=== PATIENT | male | born 1945 | race Caucasian/White ===

== ENCOUNTER 2017-12-18 19:58 | Inpatient (IN) | payer MEDICARE ==
[~2017-12-18] VITALS: Ht 175.3 cm; Wt 68.0 kg
[~2017-12-18 19:58] MED LIST: FINA5TAB4 PO; LISI-658 PO
[2017-12-18 21:04] LABS: BASOPHILS # (AUTO) 0.1 /CMM (0.0-0.2); BASOPHILS % (AUTO) 1.1 % (0.0-2.0); EOSINOPHILS # (AUTO) 0.1 /CMM (0.0-0.7); EOSINOPHILS % (AUTO) 1.9 % (0.0-6.0); HEMATOCRIT 44 % (39-51); HEMOGLOBIN 14.9 g/dL (13.5-17.5); LYMPHOCYTES # (AUTO) 1.9 /CMM (0.8-4.8); LYMPHOCYTES % (AUTO) 31.5 % (20.0-44.0); MEAN CORPUSCULAR HEMOGLOBIN 30 PG (26.0-33.0); MEAN CORPUSCULAR HGB CONC 34 g/dl (31.0-36.0); MEAN CORPUSCULAR VOLUME 89 fL (80-96); MONOCYTES # (AUTO) 0.4 /CMM (0.1-1.30); MONOCYTES % (AUTO) 7.2 % (2.0-12.0); NEUTROPHILS # (AUTO) 3.7 /CMM (1.8-8.9); NEUTROPHILS % (AUTO) 58.3 % (43.0-81.0); PLATELET COUNT (AUTO) 276 /CMM (150-450); RDW COEFFICIENT OF VARIATION 12.9 (11.5-15.0); RED BLOOD CELL COUNT(AUTO) 4.91 MIL/uL (4.5-6.0); WHITE BLOOD COUNT (AUTO) 6.2 K/uL (4.3-11.0)
[2017-12-18 21:22] LABS: INR 0.94 (0.85-1.15)
[2017-12-18 21:33] LABS: CALCIUM, SERUM 9.4 mg/dL (8.5-10.1); CARBON DIOXIDE 24 mmol/L (21-32); CHLORIDE 105 mmol/L (98-107); CREATININE 0.7 mg/dL (0.6-1.3); GLUCOSE 104 mg/dL (74-106); POTASSIUM 4.3 mmol/L (3.5-5.1); SODIUM SERUM 140 mmol/L (136-145); UREA NITROGEN, BLOOD 15 mg/dL (7-18)
[2017-12-18 21:39] LABS: ALANINE AMINOTRANSFERASE 23 U/L (12-78); ALBUMIN 3.5 g/dL (3.4-5.0); ALCOHOL, BLOOD < 3 mg/dL (0-0); ALKALINE PHOSPHATASE 92 U/L (46-116); ASPARTATE AMINOTRANSFERASE 22 U/L (15-37); BILIRUBIN,DIRECT 0.2 mg/dL (0.0-0.2); BILIRUBIN,TOTAL 0.5 mg/dL (0.2-1.0); TOTAL PROTEIN, SERUM 7.2 g/dL (6.4-8.2)
[2017-12-18 21:40] LABS: SALICYLATE 1.7 mg/dL (2.8-20.0)
[2017-12-18 21:41] LABS: ACETAMINOPHEN < 2 ug/ml (10-30)
[2017-12-18] MEDS ORDERED: TRAZODONE 50 MG TABLET PO ONE (22:00)
[2017-12-18] MEDS ORDERED: LORAZEPAM INJ 2 MG/ML VIAL IM ONE (22:00)
[2017-12-18] MEDS ORDERED: QUETIAPINE FUMARATE 100 MG TABLET PO SCH (22:00)
--- NOTE | 2017-12-18 22:06 | NUR ---
[id number]
[2017-12-18] MEDS ORDERED: TRAZODONE 50 MG TABLET ONE (22:11)
[2017-12-18] MEDS ORDERED: LORAZEPAM INJ 2 MG/ML VIAL ONE (22:11)
[2017-12-18] MEDS ORDERED: QUETIAPINE FUMARATE 25 MG TABLET ONE (22:11)
[2017-12-18] MEDS ORDERED: LITH300T3 PO (22:34)
[2017-12-18] MEDS ORDERED: TRAZ-144 PO (22:34)
[2017-12-18] MEDS ORDERED: QUET100T PO (22:34)
[2017-12-18] MEDS ORDERED: LITH600C PO (22:34)
[2017-12-18] MEDS ORDERED: ACETAMINOPHEN 325 MG TABLET PO PRN (23:00)
[2017-12-18] MEDS ORDERED: MAG HYDROX/AL HYDROX/SIMETH 30 ML UDC PO PRN (23:00)
[2017-12-18] MEDS ORDERED: TEMAZEPAM 7.5 MG CAPSULE PO PRN (23:00)
[2017-12-18] MEDS ORDERED: MAGNESIUM HYDROXIDE 30 ML UDC PO PRN (23:00)
[2017-12-18] MEDS ORDERED: LORAZEPAM 0.5 MG TABLET PO PRN (23:00)
--- NOTE | 2017-12-18 23:32 | NUR ---
ADMISSION NOTES ADMITTED THIS 72 Y/O MALE PATIENT ADMIT FROM [facility] ER/ , PT. INTIALLY CAME FROM [facility]. PT IS ON 5150 HOLD FOR GD,DANGER TO OTHERS , PER HOLD PT. IS CONFUSED, DISORGNIZE , DISORIENTED ,RESPONDING TO INTERNAL STIMULI TALKING TO SELF,EXHIBITING BIZARE BEHAVIOR, ANXIOUS ,UPON FACE TO FACE ASSESSMENT PATIENT IS A&O X1,2 CONFUSED DISORIENTED , DISORGNIZED ANXIOUS , AGGRESSIVE BEHAVIOR , DISHELVED ,UNCOOPERTIVE BEHAVIOR, FLIGHT OF WORDS, POOR HYGIENE , PT. REFUSED TO TAKE SHOWER AT THIS TIME , PT. IS POOR HISTORIAN, POOR INSIGHT ,POOR JUDGEMENT ,V/S WNL, NO ACUTE DISTRESS NOTED, HX OF , BIPOLAR, DEPRESSION , ANXIETY,HTN ,ARTHRITIS, BPH, PT. ALLOWED ONLY SUPERFICIAL SKIN ASSESSMENT, PER PT. MY SKIN IS CLERA , PICTURE TAKEN PLACED IN THE CHART, MD AWARE OF NEW ADMISSION,, ENCOURAGED PT. VERBALIZED ANY FEELING CONCERN TO STAFF, ORIENT TO UNIT POLICY, WILL CONTINUE TO MONITOR FOR Q15 SAFETY AND BEHAVIOR.
[2017-12-18 23:50] VITALS: BP 114/70
[2017-12-19] MEDS: ENOXAPARIN SODIUM 40 MG/0.4 ML DISP.SYRIN SQ SCH ×2 (01:00→23:00)
--- NOTE | 2017-12-19 03:01 | NUR ---
RN GPS NOTES PT. REFUSED TO TAKE PICTURE RIGHT LOWER EXTRMITES , ENCOURAGED X 3 EXPLIAN RISKS AND BENEFITS , STILL REFUSED, PT. STATUS I DON'T WANT TAKE PICTURE
[2017-12-19 07:38] LABS: APPEARANCE,URINE CLEAR (CLEAR); BILIRUBIN,URINE NEGATIVE (NEGATIVE); BLOOD, URINE NEGATIVE Ery/uL (NEGATIVE); COLOR,URINE YELLOW (YELLOW); KETONES,URINE NEGATIVE (NEGATIVE); LEUKOCYTE ESTERASE ,URINE NEGATIVE (NEGATIVE); NITRITE, URINE NEGATIVE (NEGATIVE); PH,URINE 6.5 (5.0-8.0); PROTEIN,URINE NEGATIVE (NEGATIVE); UGLUCOSE NEGATIVE (NEGATIVE); UROBILINOGEN,URINE 0.2 EU/dL (0.2)
[2017-12-19 08:00] VITALS: BP 133/83
[2017-12-19] MEDS: FINASTERIDE (5 MG) 5 MG TABLET PO SCH (09:02)
[2017-12-19] MEDS: LISINOPRIL (20MG) 20 MG TABLET PO SCH (09:03)
--- NOTE | 2017-12-19 13:45 | NUR ---
WOUND CARE CONSULT: PT VERY AGITATED AND REFUSING SKIN ASSESSMENT. PT IS AMBULATORY AND CONTINENT. CURRENT LUDIN SCORE IS 19. WILL SEE PRN.
--- NOTE | 2017-12-19 15:27 | NUR ---
RN-CO: PATIENT WAS SEEN AND EXAMINED BY FRANCINE LOVE NP. MICROGRAPHICS SERVICES SUPERVISOR MADE AWARE THAT PATIENT HAS HX OF DM PER PT.
--- NOTE | 2017-12-19 15:29 | NUR ---
RN-CO: PATIENT IS SCREAMING AND YELLING FOR NO REASON, VERBALLY ABUSIVE TO STAFF. AGITATED, ATIVAN 0.5 MG PO GIVEN. SEEN BY DR BATISTA.
[2017-12-19] MEDS: LITHIUM CARBONATE 150 MG CAPSULE PO SCH (16:25)
[2017-12-19] MEDS: QUETIAPINE FUMARATE 25 MG TABLET PO SCH (16:25)
[2017-12-19 16:58] VITALS: BP 138/79
--- NOTE | 2017-12-19 17:21 | NUR ---
RN-CO: STILL WAITING FOR HEMOGLOBIN A1C RESULT.
--- NOTE | 2017-12-19 19:20 | NUR ---
GPS/DINING SERVER; RECEIVED PT IN BED QUIET AND APPEARED SLEEPING WITH EYES CLOSED. BREATHING NON LABORED. BED ON LOWER POSITION AND LOCKED FOR SAFETY. SIDE UPPER PART OF BED X2 ARE UP FOR SAFETY. WILL CONTINUE TO MONITOR.
[2017-12-19 20:50] VITALS: BP 100/53
[2017-12-19] MEDS: TRAZODONE 50 MG TABLET PO SCH (22:40)
[2017-12-19] MEDS: QUETIAPINE FUMARATE 100 MG TABLET PO SCH (22:40)
--- NOTE | 2017-12-19 23:00 | NUR ---
GPS /ASSISTANT FINANCE MANAGER; PT REFUSED LOVENOX AND CHARGE NURSE MADE AWARE.
--- NOTE | 2017-12-19 23:30 | NUR ---
GPS/STEELSCOPE OPERATOR; MACARIO HELMS ACCOUNTING CONSULTANT WAS NOTIFIED PT REFUSED LOVENOX AND SHE SAID THAT'S OK.
--- NOTE | 2017-12-20 06:29 | NUR ---
GPS/INORGANIC CHEMICAL TECHNICIAN; SLEPT FOR 10 HOURS. CONTINENT; WENT FOR BRP. WILL ENDORSE TO THE DAY SHIFT NURSE.
--- NOTE | 2017-12-20 07:00 | NUR ---
GPS/ENERGY BROKER; NOTED PT UP STANDING WITH DIAPER ON AND NOTED PT MADE A BM AND BM ON THE FLOOR AND YOUTH DEVELOPMENT SPECIALIST ANIVAL GIVING HIM A SHOWER.
[2017-12-20 07:47] LABS: CREATININE 0.9 mg/dL (0.6-1.3)
[2017-12-20 07:48] LABS: CHOLESTEROL 110 mg/dL (<200); HDL CHOLESTEROL 54 mg/dL (40-60); LDL 49 mg/dL (0-99); TRIGLYCERIDES 72 mg/dL (30-150)
[2017-12-20 08:00] VITALS: BP 101/69
[2017-12-20] MEDS: LISINOPRIL (20MG) 20 MG TABLET PO SCH (09:00)
[2017-12-20] MEDS: LITHIUM CARBONATE 150 MG CAPSULE PO SCH ×3 (09:50→17:09)
[2017-12-20] MEDS: QUETIAPINE FUMARATE 25 MG TABLET PO SCH ×2 (09:50→17:09)
[2017-12-20] MEDS: FINASTERIDE (5 MG) 5 MG TABLET PO SCH (09:50)
--- NOTE | 2017-12-20 11:45 | NUR ---
GPS/RN-NOTES PATIENT IN HIS BED RINGING HIS CORNEJO . NATIONAL SALES REPRESENTATIVE WENT IN HIS ROOM AND ASK WHAT HE NEED BUT PATIENT START YELLING AND VERBALLY ABUSIVE USING FOUL LANGUAGES. DEMANDING AND WANTED TO BE DISCHARGE. REDIRECTED AND OFFERED ATIVAN BUT PATIENT REFUSED. STATED" I DON'T NEED ATIVAN". I WILL TALK ONLY TO THE DOCTOR.
[2017-12-20 15:53] VITALS: BP 128/83
--- NOTE | 2017-12-20 16:37 | NUR ---
Initial Discharge Plan: Pt resides at [facility], [address] [address]; . Upon discharge pt would like to return to the facility. MARÍA contacted pts brother, Escobar Nolen for collateral information however was unable to speak to him. SW left a message. MARÍA will follow up to ensure pt is safely and properly discharged.
[2017-12-20] MEDS: ENOXAPARIN SODIUM 40 MG/0.4 ML DISP.SYRIN SQ SCH (20:46)
[2017-12-20] MEDS: TRAZODONE 50 MG TABLET PO SCH (21:09)
[2017-12-20] MEDS: QUETIAPINE FUMARATE 100 MG TABLET PO SCH (21:10)
[2017-12-21 08:00] VITALS: BP 129/77
[2017-12-21] MEDS: LITHIUM CARBONATE 150 MG CAPSULE PO SCH ×3 (08:15→18:04)
[2017-12-21] MEDS: LISINOPRIL (20MG) 20 MG TABLET PO SCH (08:15)
[2017-12-21] MEDS: FINASTERIDE (5 MG) 5 MG TABLET PO SCH (08:15)
[2017-12-21] MEDS: QUETIAPINE FUMARATE 25 MG TABLET PO SCH ×2 (08:15→18:06)
[2017-12-21] MEDS: LORAZEPAM 0.5 MG TABLET PO PRN (08:15)
--- NOTE | 2017-12-21 09:23 | NUR ---
GPS/RN DISREGARD ACCUCHECK WITH BS =[id number]. USER ERROR. Addendum: 12/21/17 at 1452 by DORIS MARTINO RN ATTENDING [facility] HOSPITAL[facility] PATRICIA CONRAD MADE AWARE ACCUCHECK USER ERROR AT [id number]
[2017-12-21] MEDS ORDERED: BLOOD SUGAR DIAGNOSTIC 1 EACH STRIP IN ONE (13:30)
[2017-12-21 16:00] VITALS: BP 107/56
[2017-12-21] MEDS: QUETIAPINE FUMARATE 100 MG TABLET PO SCH (18:04)
[2017-12-21 20:00] VITALS: BP 100/54
[2017-12-21] MEDS: ENOXAPARIN SODIUM 40 MG/0.4 ML DISP.SYRIN SQ SCH (21:21)
[2017-12-21] MEDS: TRAZODONE 50 MG TABLET PO SCH (21:40)
[2017-12-22 08:00] VITALS: BP 115/65
[2017-12-22] MEDS: LISINOPRIL (20MG) 20 MG TABLET PO SCH (08:26)
[2017-12-22] MEDS: FINASTERIDE (5 MG) 5 MG TABLET PO SCH (08:27)
[2017-12-22] MEDS: LITHIUM CARBONATE 150 MG CAPSULE PO SCH ×3 (08:27→17:32)
[2017-12-22] MEDS: QUETIAPINE FUMARATE 25 MG TABLET PO SCH ×3 (08:27→22:12)
[2017-12-22] MEDS: LORAZEPAM 0.5 MG TABLET PO PRN (08:31)
--- NOTE | 2017-12-22 08:35 | NUR ---
GPS RN NOTES PATIENT INSIDE ROOM, RESTLESS WITH INCREASING AGITATION, BEING VERBALLY ABUSIVE. OFFERED ATIVAN AND SAID YES, GAVE ATIVAN ORDERED PRN. WILL CONTINUE TO MONITOR
[2017-12-22 16:00] VITALS: BP 121/76
[2017-12-22 20:00] VITALS: BP 111/55
[2017-12-22] MEDS: ENOXAPARIN SODIUM 40 MG/0.4 ML DISP.SYRIN SQ SCH (21:00)
[2017-12-22] MEDS: TRAZODONE 50 MG TABLET PO SCH ×2 (22:12→22:13)
[2017-12-22] MEDS: QUETIAPINE FUMARATE 100 MG TABLET PO SCH (22:13)
--- NOTE | 2017-12-23 01:08 | NUR ---
Pt has been disheveled, malodorous, easily irritable, & refusing to take a shower but med compliant w/o any promptings.
[2017-12-23 08:00] VITALS: BP 106/72
[2017-12-23] MEDS: LITHIUM CARBONATE 150 MG CAPSULE PO SCH ×3 (08:59→16:28)
[2017-12-23] MEDS: FINASTERIDE (5 MG) 5 MG TABLET PO SCH (09:01)
[2017-12-23] MEDS: LISINOPRIL (20MG) 20 MG TABLET PO SCH (09:01)
--- NOTE | 2017-12-23 10:00 | NUR ---
NURSING NOTE PT C/O RIGHT LEG PAIN AND BILATERAL SHOULDER PAIN, RATING PAIN 10/10, PER PT REQUEST TYLENOL 650 MG WAS GIVEN, VS WNL, WILL CONTINUE TO MONITOR
--- NOTE | 2017-12-23 11:00 | NUR ---
NURSING NOTE REASSESSED PT'S PAIN LEVEL, PT STATES HIS PAIN IS 6/10, VS WNL, WILL CONTINUE TO MONITOR
[2017-12-23 16:00] VITALS: BP 103/67
[2017-12-23] MEDS: QUETIAPINE FUMARATE 25 MG TABLET PO SCH (16:29)
[2017-12-23 19:46] VITALS: BP 85/51
[2017-12-23] MEDS: QUETIAPINE FUMARATE 100 MG TABLET PO SCH (21:24)
[2017-12-23] MEDS: ENOXAPARIN SODIUM 40 MG/0.4 ML DISP.SYRIN SQ SCH (21:25)
[2017-12-24 08:00] VITALS: BP 124/76
[2017-12-24] MEDS: QUETIAPINE FUMARATE 25 MG TABLET PO SCH ×2 (09:52→16:49)
[2017-12-24] MEDS: LITHIUM CARBONATE 150 MG CAPSULE PO SCH ×3 (09:52→16:49)
[2017-12-24] MEDS: FINASTERIDE (5 MG) 5 MG TABLET PO SCH (09:52)
[2017-12-24] MEDS: LISINOPRIL (20MG) 20 MG TABLET PO SCH (09:52)
--- NOTE | 2017-12-24 10:17 | NUR ---
Discharge Planning: MARÍA contacted [facility], [address] [address]; to obtain contact information for pts conservator. MARÍA was provided with the following contact information: Adam Spencer . MARÍA called the number provided and was informed that pts Conservator is Caio Malcolm . MARÍA asked for conservator documentation and consent for treatment to be faxed to [facility]. MARÍA will follow up to ensure paperwork is received.
--- NOTE | 2017-12-24 11:00 | NUR ---
Discharge planning: SW contacted [facility], [address] [facility] [id number]; to confirm pts return. Per Admissions Staff, pt could return to the facility once he is ready and stable to discharge.
[2017-12-24 16:00] VITALS: BP 105/64
--- NOTE | 2017-12-24 19:30 | NUR ---
GPS RN NOTE, RECEIVED PATIENT AWAKE AND IN BED, NO S/S OR COMPLAINTS OF PAIN AT THIS TIME. PATIENT IS DISPLAYING NO S/S OF APPARENT DISTRESS AT THIS TIME. PATIENT BREATHING IS UNLABORED WITH EQUAL RISE AND FALL OF THE CHEST. PATIENT IS ALERT AND ORIENTED X 3 ON ROOM AIR WITH A SPO2 OF 95%. PATIENT IS MEDICATION COMPLIANT, DEPRESSED, ISOLATIVE, AND NEEDS REORIENTATION. PATIENT DENIES SUICIDE IDEATIONS AND HOMICIDAL IDEATIONS AT THIS TIME. PATIENT ASSISTED WITH TURNING AND REPOSITIONING Q2HR AND PRN FOR COMFORT AND CIRCULATION. PATIENT HAS NO NEEDS AT THIS TIME. PATIENT EDUCATED ON THE USE OF THE CALL CORNEJO. PATIENT SIDE RAILS ARE UP X 2, BED IS LOCKED AND LOW, AND I WILL CONTINUE TO MONITOR THIS PATIENT Q 15 MIN WITH THE HELP OF STAFF.
[2017-12-24 19:54] VITALS: BP 93/65
[2017-12-24] MEDS: ENOXAPARIN SODIUM 40 MG/0.4 ML DISP.SYRIN SQ SCH (21:27)
[2017-12-24] MEDS: TRAZODONE 50 MG TABLET PO SCH (21:27)
[2017-12-24] MEDS: QUETIAPINE FUMARATE 100 MG TABLET PO SCH (21:27)
[2017-12-25 08:00] VITALS: BP 111/67
[2017-12-25] MEDS: LITHIUM CARBONATE 150 MG CAPSULE PO SCH ×3 (08:43→17:00)
[2017-12-25] MEDS: FINASTERIDE (5 MG) 5 MG TABLET PO SCH (08:43)
[2017-12-25] MEDS: LISINOPRIL (20MG) 20 MG TABLET PO SCH (08:43)
[2017-12-25] MEDS: QUETIAPINE FUMARATE 25 MG TABLET PO SCH ×2 (08:45→17:00)
--- NOTE | 2017-12-25 15:16 | NUR ---
Discharge Planning: MARÍA contacted [facility], [address] [address] [address]; and spoke to Mary from Admissions to confirm pts discharge for tomorrow. MARÍA was informed that pt would be re routing to [facility], [address] [place] [address]. [place] [address]; as pt requires a higher level of care. Per reports, pt has been non compliant with medication and has had behavioral issues in the recent past. MARÍA inquired if pts Conservator was aware of pts discharge plan. Per Mary, pts Conservator is in agreement with pt discharging to [facility]. MARÍA contacted Berto from [facility] Admissions to confirm information provided by Mary (which was confirmed). MARÍA faxed inquiry (face sheet, medical H&P, P&P, and medication list), attention Berto. MARÍA will follow up with pts Conservator to confirm information as well as facility to ensure pt is safely and properly discharged.
[2017-12-25 16:10] VITALS: BP 125/61
[2017-12-25 20:45] VITALS: BP 114/59
[2017-12-25] MEDS: TRAZODONE 50 MG TABLET PO SCH (21:18)
[2017-12-25] MEDS: QUETIAPINE FUMARATE 100 MG TABLET PO SCH (21:18)
[2017-12-25] MEDS: ENOXAPARIN SODIUM 40 MG/0.4 ML DISP.SYRIN SQ SCH (21:18)
[2017-12-26 08:00] VITALS: BP 110/74
[2017-12-26] MEDS: LITHIUM CARBONATE 150 MG CAPSULE PO SCH ×2 (08:32→13:20)
[2017-12-26] MEDS: LISINOPRIL (20MG) 20 MG TABLET PO SCH (08:32)
[2017-12-26] MEDS: FINASTERIDE (5 MG) 5 MG TABLET PO SCH (08:32)
[2017-12-26] MEDS: QUETIAPINE FUMARATE 25 MG TABLET PO SCH (09:07)
--- NOTE | 2017-12-26 11:49 | NUR ---
RN-CO: SHAYNA , PATIENT CONSERVATOR IS MADE AWARE OF PT'S DISCHARGE AND IN AGREEMENT. ON THE UNIT PATIENT IS PARTICIPATING IN GROUPS, DENIED SUICIDAL AND HOMICIDAL IDEATION, DENIED COMMAND HALLUCINATION. NO AGGRESSION NOTED. NO ACUTE DISTRESS NOTED. Addendum: 12/26/17 at 1154 by ENRIQUE AGUIAR RN RN-CO: "SHAYNA" from admission of [facility] is aware. Shayna is not the conservator.
[2017-12-26 14:10] VITALS: BP 116/71
--- NOTE | 2017-12-26 15:02 | NUR ---
Pt discharge by Dr. Contreras. Clinical Documentation Spec Garcia agrees with discharge plan. pt going to [facility] [address] [phone] via ambulance. conservator jorge pearson has been notified. pt is alert oriented x 2 -3. calm and cooperative. denies s/i and/or h/i at time of discharge. no acute distress noted. skin care check. belongings returned to patient. medication reconciled. exitcare completed. pt left in stable condition.
== END 2017-12-26 14:45 | DRG 885 ==
LOC: ER 20:00 → GPS 22:29
PROVIDERS: ADMIT Psychiatry & Neurology Psychiatry; ATTEND Nurse Practitioner Acute Care
DX: F31.9 Bipolar disorder, unspecified (principal); I11.0 Hypertensive heart disease with heart failure; E11.9 Type 2 diabetes mellitus without complications; F25.9 Schizoaffective disorder, unspecified; I50.9 Heart failure, unspecified; F29 Unspecified psychosis not due to a substance or known physiological condition; M06.9 Rheumatoid arthritis, unspecified; N40.0 Benign prostatic hyperplasia without lower urinary tract symptoms; Z73.6 Limitation of activities due to disability
CPT/HCPCS: 36415; 73610-TC; 73630-TC; 80048-TC; 80061-TC; 80076-TC; 80305; 81000-TC; 82565-TC; 82962-TC; 85025-TC; 85730-TC; 87081-TC; 93307-TC; 93971-TC; A4606; G0480; J1650; J2060; Z7610